=== PATIENT | male | born 1955 | race African-American/Black ===

== ENCOUNTER 2018-11-28 18:10 | Emergency (ER) | payer OTHER ==
[2018-11-28 18:30] VITALS: TEMP 98.3; BMI 43.8
--- NOTE | 2018-11-28 18:33 | PDOC ---
Rapid Medical Evaluation Chief Complaint: Pain Time Seen by Provider: 11/28/18 18:30 Medical Evaluation: Allergies Allergy/AdvReac Type Severity Reaction Status Date / Time No Known Drug Allergies Allergy Verified 09/01/15 11:46 Vital Signs Temp Pulse Resp BP Pulse Ox 98.3 F 74 16 161/65 95 11/28/18 18:27 11/28/18 18:27 11/28/18 18:27 11/28/18 18:27 11/28/18 18:27 11/28/18 18:30 Pt c/o: urinary freq right back pain, kidney tx 5 yrs ago done at [facility], no other complaints Pt on brief exam: mild rt cva tenderness, vss Pt ordered: labs, urine, iv Pt to proceed to the ED Discharge Disposition - Diagnosis Back pain - Referrals - Patient Instructions - Post Discharge Activity
[2018-11-28 19:00] LABS: BASO % 1.3 % (0-2.0); EOS % 1.5 % (0-4.5); HEMATOCRIT 37.6 % (35.4-49); HEMOGLOBIN 11.6 GM/dL (11.7-16.9); MEAN CELL VOLUME 71.2 fl (80-96); MEAN PLT VOLUME 9.3 fl (7.5-11.1); MONO % 7.1 % (3.8-10.2); NEUT % 72.1 % (42.8-82.8); PLATELET COUNT 194 K/MM3 (134-434); RBC 5.28 M/mm3 (4.00-5.60); WHITE BLOOD COUNT 7.9 K/mm3 (4.0-10.0)
[2018-11-28 19:02] LABS: EPI CELLS 0.3 /HPF (0-5/HPF); HYALINE CASTS 0 /lpf (0-8); PH,URINE 7.5 (5.0-8.0); URINE APPEARANCE CLEAR; URINE BACTERIA 0.3 /hpf (NEGATIVE); URINE BILIRUBIN NEGATIVE (NEGATIVE); URINE COLOR YELLOW; URINE GLUCOSE (UA) NEGATIVE (NEGATIVE); URINE KETONE NEGATIVE (NEGATIVE); URINE LEUK ESTERASE NEGATIVE (NEGATIVE); URINE NITRITE NEGATIVE (NEGATIVE); URINE PROTEIN 1+ (NEGATIVE); URINE RBC 0 /hpf (0-4); URINE UROBILINOGEN 0.2 mg/dL (0.2-1.0); URINE WBC 0 /hpf (0-5)
[2018-11-28 19:30] LABS: BILIRUBIN,TOTAL 0.7 mg/dL (0.2-1); BLOOD UREA NITROGEN 23.7 mg/dL (7-18); CALCIUM 8.5 mg/dL (8.5-10.1); CREATININE 1.7 mg/dL (0.55-1.3); POTASSIUM 4.4 mmol/L (3.5-5.1); TOT PROT 6.7 g/dl (6.4-8.2)
[2018-11-28 19:42] LABS: ANISOCYTOSIS 1+; PLATELET ESTIMATE NORMAL
--- NOTE | 2018-11-28 21:33 | PDOC ---
History of Present Illness - General Chief Complaint: Pain Stated Complaint: KIDNEY PAIN Time Seen by Provider: 11/28/18 18:30 Past History - Past Medical History Allergies/Adverse Reactions: Allergies Allergy/AdvReac Type Severity Reaction Status Date / Time No Known Drug Allergies Allergy Verified 09/01/15 11:46 Home Medications: Ambulatory Orders Aspirin [ASA -] 325 mg PO DAILY 12/14/12 Carvedilol [Coreg -] 3.125 mg PO BID 12/14/12 Atorvastatin Ca [Lipitor] 40 mg PO DAILY 09/01/15 Losartan Potassium 100 mg PO DAILY 09/01/15 Mycophenolate Mofetil [Cellcept -] 500 mg PO BID 09/01/15 Nifedipine ER [Procardia Xl -] 30 mg PO BID 09/01/15 Tacrolimus 5 mg PO BID 09/01/15 Tamsulosin HCl 0.4 mg PO HS 09/01/15 Anemia: No Asthma: No Cancer: No Cardiac Disorders: No CVA: Yes COPD: No CHF: No Dementia: No Diabetes: No Dialysis: Yes GI Disorders: No Disorders: No HTN: Yes Hypercholesterolemia: No Liver Disease: No Seizures: No Thyroid Disease: No - Surgical History Abdominal Surgery: Yes (HERNIA SX) Appendectomy: No Cardiac Surgery: No Cholecystectomy: No Lung Surgery: No Neurologic Surgery: No Orthopedic Surgery: Yes (BILATERAL HIP REPLACEMENTS) - Immunization History Immunization Up to Date: Yes - Psycho Social/Smoking Cessation Hx Smoking Status: No Smoking History: Never smoked Have you smoked in the past 12 months: No Number of Cigarettes Smoked Daily: 0 If you are a former smoker, when did you quit?: 15 YEARS Hx Alcohol Use: No Drug/Substance Use Hx: No Substance Use Type: None Hx Substance Use Treatment: No *Physical Exam - Vital Signs Last Vital Signs Temp Pulse Resp BP Pulse Ox 98.3 F 74 16 161/65 95 11/28/18 18:27 11/28/18 18:27 11/28/18 18:27 11/28/18 18:27 11/28/18 18:27 ED Treatment Course - LABORATORY CBC & Chemistry Diagram: 11/28/18 18:46 11/28/18 18:46 - ADDITIONAL ORDERS Additional order review: Laboratory Results 11/28/18 11/28/18 11/28/18 18:46 18:46 18:46 WBC 7.9 RBC 5.28 Hgb 11.6 L Hct 37.6 MCV 71.2 L MCH 22.0 L MCHC 31.0 L RDW 16.0 H Plt Count 194 D MPV 9.3 Absolute Neuts (auto) 5.7 Neutrophils % 72.1 Lymphocytes % 18.0 D Monocytes % 7.1 Eosinophils % 1.5 D Basophils % 1.3 Nucleated RBC % 0 Hypochromia 1+ Platelet Estimate Normal Polychromasia 1+ Anisocytosis 1+ Schistocytes 1+ Sodium 141 Potassium 4.4 Chloride 109 H Carbon Dioxide 25 Anion Gap 7 L BUN 23.7 H Creatinine 1.7 H Est GFR (CKD-EPI)AfAm 49.00 Est GFR (CKD-EPI)NonAf 42.28 Random Glucose 99 Calcium 8.5 Total Bilirubin 0.7 AST 18 ALT 19 Alkaline Phosphatase 69 Total Protein 6.7 Albumin 4.0 Lipase 122 Urine Color Yellow Urine Appearance Clear Urine pH 7.5 D Ur Specific [place] 1.010 Urine Protein 1+ H Urine Glucose (UA) Negative Urine Ketones Negative Urine Blood Negative Urine Nitrite Negative Urine Bilirubin Negative Urine Urobilinogen 0.2 Ur Leukocyte Esterase Negative Urine WBC (Auto) 0 Urine RBC (Auto) 0 Urine Casts (Auto) 0 U Epithel Cells (Auto) 0.3 Urine Bacteria (Auto) 0.3 11/28/18 18:46 RBC 5.28 MCV 71.2 L MCHC 31.0 L RDW 16.0 H MPV 9.3 Neutrophils % 72.1 Lymphocytes % 18.0 D Monocytes % 7.1 Eosinophils % 1.5 D Basophils % 1.3 Medical Decision Making - Medical Decision Making 11/28/18 21:33 HPI: 63yo M hx R renal transplant in 2013 (and L renal atrophy on [address] CT), HTN, CAD , HLD, prior CVA (2010), known heart murmur (followed by cashier host/hostess) presents from home c/o L-sided lower back pain xapprox 1wk, nonradiating, intermittent, sharp, only occurs when pt stands up after sitting especially if sitting for long periods, resolves on own with walking or standing, improved with 5mg percocet last night. Pt wanted to check if kidney was alright. Called his transplant PA and was told to come here to get it checked out. Endorses heavy lifting of log on Saturday which pt believes was prior to the pain starting. 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 Denies trauma, sick contacts, recent travel, recent illness, fever, chills, fatigue, headache, dizziness, numbness/tingling, weakness, vision changes, shortness of breath, cough, chest pain, palpitations, leg swelling, abdominal pain, blood in stool, diarrhea, constipation, nausea, vomiting, dysuria, hematuria, urinary retention, urinary frequency or urgency, polyuria, confusion. ROS: Constitutional: Negative for chills, fever, fatigue, diaphoresis. HENT: Negative for sore throat, rhinorrhea, congestion. Eyes: Negative for visual disturbance. Respiratory: Negative for shortness of breath, cough, and wheezing. Cardiovascular: Negative for chest pain, palpitations, and leg swelling. Gastrointestinal: Negative for abdominal pain, blood in stool, constipation, diarrhea, nausea, and vomiting. Genitourinary: Positive for L flank/lower back pain. Negative for dysuria and hematuria. Musculoskeletal: Positive for L-sided lower back pain. Negative for myalgias and neck pain. Skin: Negative for rash. Neurological: Negative for light-headedness, dizziness, vertigo, syncope, weakness, numbness and headaches. Psychiatric/Behavioral: Negative for behavioral problems and confusion. PE: Gen: Alert, NAD, comfortable-appearing, obese HEENT: PERRL, EOMI, MMM, NCAT. No conjunctival pallor. Sclera are non-icteric. CV: Regular rate and rhythm. +systolic murmur (chronic per pt). No rubs, or gallops. PULM: No resp distress. CTAB, no wheezes, rales, or rhonchi. ABD: soft, NT/ND, no rebound tenderness or guarding, no CVA tenderness. BACK: No TTP of c/t/l-spine. No step-offs or deformities. +L-sided back pain just superior to L hip reproduced immediately every time pt stands up from sitting position, then resolves within 10 seconds. MSK: No bony deformities. 2+ pulses in all extremities. NEURO: AAOx3. PERRL. No gross CN deficits. Strength and sensation grossly intact throughout. EXTREMITIES: + L forearm fistula with bruit and thrill. No cyanosis. No clubbing. No edema. No calf tenderness. PSYCH: Normal mood and thought pattern. SKIN: Warm and dry. Normal capillary refill. No rashes. No jaundice. MDM: 63yo M hx R renal transplant in 2013 (and L renal atrophy on 2016 CT), HTN, CAD , HLD, prior CVA (2010), known heart murmur (followed by cashier host/hostess) presents from home presents with L-sided lower back pain xapprox 1wk, nonradiating, intermittent, sharp, only occurs when pt stands up after sitting especially if sitting for long periods, resolves on own with walking or standing, improved with 5mg percocet last night. Hemodynamically stable, afebrile, benign abdomen exam, no CVA tenderness, L-sided lower back pain reproducible with standing from seated position and resolves on own with standing. Presentation consistent with MSK sprain or strain 2/2 heavy lifting or prolonged sitting. No c/t/l- spine or hip TTP or trauma concerning for fx. No urinary sx, hematuria, fever, N /V, or CVA tenderness, and reproducibility of pain with standing makes urinary or renal pathology (UTI/pyelo, kidney stone, renal abscess) of low concern - check labs, no imaging indicated at this time. Kidney transplant on R side, not L side. No abdominal pain, N/V, or D/C concerning for GI pathology. -CBC,CMP,Lipase,UA/UC -1L NS - pt refuses, states just wants to drink water -Tylenol -Dispo: pending w/u, most likely d/c home Labs reviewed. Of note, BUN 23.7, Cr 1.7 (09/01/15 - BUN 18, Cr 2.0) - no concerning changes from baseline. UA: 1+ protein, no blood or signs of infection. 11/28/18 22:31 Pt states pain is still gone, only comes temporarily when stands up after prolonged sitting. Ambulating without difficulty. Will dc home with PCP f/u. Return precautions given. Pt understands all dc instructions and all questions were answered. Discharge - Discharge Information Problems reviewed: Yes Clinical Impression/Diagnosis: Back pain Condition: Improved Disposition: HOME - Admission No - Follow up/Referral - Patient Discharge Instructions Patient Printed Discharge Instructions: DI for Low Back Pain Additional Instructions: You have been seen in the Emergency Department for your left-sided lower back pain. Your pain is most likely a strain or sprain of a ligament or muscle. If you experience pain, you can take Tylenol as directed on the medication bottle, but do not exceed 4g of Tylenol a day. Make sure you rest your back. Stop, change, or take a break from any activity that may be causing your pain or soreness. You can also use ice and/or heat to help the healing process. Cold will reduce pain and swelling. Apply an ice or cold pack right away to prevent or minimize swelling. Apply the ice or cold pack for 10 to 20 minutes, 3 or more times a day. After 48 to 72 hours, if swelling is gone, apply heat to the area that hurts. Do not apply ice or heat directly to the skin. Place a towel over the cold or heat pack before applying it to the skin. Your blood work and urine show no signs concerning for an infection or problem in your kidneys at this time. However, it is important that you follow-up with your kidney transplant doctor and your primary care doctor. Call their offices to make appointments for follow-up within 1 week. It is also very important to stay hydrated with water (not earlene seda!). Return to the ED immediately if you experience worsening pain not controlled by over the counter medications, numbness or tingling, weakness, fever, vomiting, blood in the urine, or any other new or worsening symptom. - Post Discharge Activity
[2018-11-28 22:04] VITALS: BP 138/81
[2018-11-28] MEDS ORDERED: ACETAMINOPHEN 500 MG TABLET (FP) PO ONE (22:07)
[2018-11-28] MEDS ORDERED: SODIUM CHLORIDE 0.9% 500 ML INFUS.BAG IV ONE (22:08)
[2018-11-28] MEDS ORDERED: ACETAMINOPHEN 325 MG TABLET (FP) ONE (22:43)
--- NOTE | 2018-11-28 22:53 | PDOC ---
Documentation entered by Bryn Matamoros SCRIBE, acting as scribe for Ji Stone MD. Ji Stone MD: This documentation has been prepared by the Shiloh gupta Xhesika, SCRIBE, under my direction and personally reviewed by me in its entirety. I confirm that the documentation accurately reflects all work, treatment, procedures, and medical decision making performed by me. Attending Attestation - Resident Resident Name: DionicioheronReanna - ED Attending Attestation I have performed the following: I have examined & evaluated the patient, The case was reviewed & discussed with the resident, I agree w/resident's findings & plan, Exceptions are as noted - HPI HPI: 11/28/18 22:31 The patient is a 63 year old male with a significant PMH of R renal transplant in 2013, HTN, CAD, HLD, prior CVA (2010) who presents to the emergency department for L lower back pain x 1 week. Patient describes the pain as sharp, worsened when standing up/ walking. He states when he stands from a seated position, he has the pain for about 5-10 seconds, then it self resolves. The pain is non radiating. Pt called his transplant PA and was advised to come to the ED. Patient notes he lifted a heavy log on Saturday. Patient took a percocet last night for the pain, no other medications tried. Denies numbness or weakness in LE. The patient denies chest pain, shortness of breath, headache and dizziness. Denies fever, chills, cough, nausea, vomiting, diarrhea and constipation. Denies dysuria, frequency, urgency and hematuria. Allergies: NKDA - Physicial Exam PE: 11/28/18 22:32 GENERAL: Awake, alert, and fully oriented, in no acute distress. Ambulating in ED, talking to staff members. EYES: PERRLA, EOMI, sclera anicteric, conjunctiva clear ENT: Oropharynx clear without exudates. Moist mucosa NECK: Normal ROM, supple, no lymphadenopathy, JVD, or masses LUNGS: Breath sounds equal, clear to auscultation bilaterally. No wheezes, and no crackles HEART: Regular rate and rhythm, normal S1 and S2, no murmurs, rubs or gallops ABDOMEN: Soft, nontender, normoactive bowel sounds. No guarding, no rebound. No masses EXTREMITIES: Normal range of motion, no edema. No cords, erythema, or tenderness BACK: No midline spinal tenderness in cervical/thoracic/lumbar region. +L lumbar paraspinal ttp NEUROLOGICAL: Normal speech, cranial nerves intact, 5/5 equal strength and sensation b/l, normal reflexes SKIN: Warm, Dry, normal turgor, no rashes or lesions noted. - Medical Decision Making 11/28/18 22:49 63yo M with MMP including R sided renal transplant presents to the ED with L lumbar pain as well as ttp on exam. He is neuro intact. His pain lasts for seconds at a time. It has resolved with tylenol. His labs are at baseline. His urine is negative for blood or infection. Likely musculoskeletal strain, as it is positional and pt reports recent heavy lifting. No emergent need for imaging at this time. Will DC pt with close PMD f/u I discussed the physical exam findings, ancillary test results and final diagnoses with the patient. I answered all of the patient's questions. The patient was satisfied with the care received and felt comfortable with the discharge plan and treatment plan. The patient will call their primary care physician within 24 hours to arrange follow-up and will return to the Emergency Department with any new, persistent or worsening symptoms.
[2018-11-28 23:03] VITALS: PULSE 86
== END 2018-11-28 22:58 | disposition home or self-care (01) ==
LOC: JER 18:10
DX: M54.89 Other dorsalgia (principal); X50.9XXA Other and unspecified overexertion or strenuous movements or postures, initial encounter; Y93.89 Activity, other specified; Y92.89 Other specified places as the place of occurrence of the external cause; Y99.8 Other external cause status; I25.10 Atherosclerotic heart disease of native coronary artery without angina pectoris; I10 Essential (primary) hypertension; R01.1 Cardiac murmur, unspecified; E78.5 Hyperlipidemia, unspecified; Z86.73 Personal history of transient ischemic attack (TIA), and cerebral infarction without residual deficits; Z94.0 Kidney transplant status; Z96.643 Presence of artificial hip joint, bilateral
CPT/HCPCS: 36415; 80053; 81003; 83690; 85025; 87086; 99283-25

== ENCOUNTER 2018-12-18 08:48 | Emergency (ER) | payer OTHER ==
[2018-12-18 09:03] VITALS: TEMP 98.1; BMI 42.3
--- NOTE | 2018-12-18 09:09 | PDOC ---
History of Present Illness - General Chief Complaint: Pain, Acute Stated Complaint: FLANK PAIN History Source: Patient Exam Limitations: No Limitations - History of Present Illness Initial Comments: 63yo M hx R renal transplant in 2013 (and L renal atrophy on 2016 CT), HTN, CAD , HLD, prior CVA (2010), known heart murmur (followed by socially responsible investment adviser) presents to the emergency department with left lower back pain that has been ongoing for 2 weeks. Per the patient, he states he presented to our emergency department 2 weeks ago for a similar complaint. He has used tylenol without relief achieved. Describes the pain as a tightness, without radiation, and is rated a 5/10. 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 He denies lifting heavy objects recently. Denies leg weakness and decreased sensation in his left leg. Denies the following: fever, chills, SOB, chest pain, nausea, vomiting, hematuria, diarrhea, and leg pain. Endorses urinary frequency and SOB. Allergies: NKDA Past History - Past Medical History Allergies/Adverse Reactions: Allergies Allergy/AdvReac Type Severity Reaction Status Date / Time No Known Drug Allergies Allergy Verified 12/18/18 09:24 Home Medications: Ambulatory Orders Carvedilol [Coreg -] 6.25 mg PO BID 12/14/12 Atorvastatin Ca [Lipitor] 40 mg PO DAILY 09/01/15 Losartan Potassium 100 mg PO DAILY 09/01/15 Mycophenolate Mofetil [Cellcept -] 500 mg PO BID 09/01/15 Nifedipine ER [Procardia Xl -] 60 mg PO BID 09/01/15 Tacrolimus 5 mg PO BID 09/01/15 Tamsulosin HCl 0.4 mg PO HS 09/01/15 Cyclobenzaprine HCl 5 mg PO DAILY #14 tablet 12/18/18 Dapsone 100 mg PO DAILY 12/18/18 Prednisone 5 mg PO DAILY 12/18/18 Anemia: No Asthma: No Cancer: No Cardiac Disorders: Yes CVA: Yes COPD: No CHF: No Dementia: No Diabetes: No Dialysis: Yes GI Disorders: No Disorders: No HTN: Yes Hypercholesterolemia: No Liver Disease: No Seizures: No Thyroid Disease: No - Surgical History Abdominal Surgery: Yes (HERNIA SX) Appendectomy: No Cardiac Surgery: No Cholecystectomy: No Lung Surgery: No Neurologic Surgery: No Orthopedic Surgery: Yes (BILATERAL HIP REPLACEMENTS) - Immunization History Immunization Up to Date: Yes - Psycho Social/Smoking Cessation Hx Smoking Status: No Smoking History: Never smoked Have you smoked in the past 12 months: No Number of Cigarettes Smoked Daily: 0 If you are a former smoker, when did you quit?: 15 YEARS Information on smoking cessation initiated: No Hx Alcohol Use: No Drug/Substance Use Hx: No Substance Use Type: None Hx Substance Use Treatment: No Review of Systems - Review of Systems Able to Perform ROS?: Yes Is the patient limited [place]an proficient: No Constitutional: No: Chills, Diaphoresis, Fever, Weakness HEENTM: No: Eye Pain, Ear Pain, Nose Pain, Throat Pain, Mouth Pain Respiratory: Yes: Shortness of Breath. No: Cough, Hemoptysis Cardiac (ROS): No: Chest Pain, Lightheadedness, Palpitations, Syncope ABD/GI: No: Constipated, Diarrhea, Nausea, Rectal Bleeding, Vomiting, Tarry Stools : Yes: Dysuria. No: Burning, Frequency, Hematuria Musculoskeletal: Yes: Back Pain. No: Joint Pain, Neck Pain Integumentary: No: Bruising, Erythema, Rash Neurological: No: Headache, Numbness, Tingling, Tremors Psychiatric: No: Change in Appetite Endocrine: No: Unexplained Weight Gain Hematologic/Lymphatic: No: Anemia *Physical Exam - Vital Signs Last Vital Signs Temp Pulse Resp BP Pulse Ox 98.1 F 62 16 150/64 96 12/18/18 09:01 12/18/18 09:01 12/18/18 09:01 12/18/18 09:01 12/18/18 09:01 - Physical Exam General Appearance: Yes: Nourished, Appropriately Dressed. No: Apparent Distress, Intoxicated HEENT: positive: EOMI, CELESTE, Normal Voice, Symmetrical, Pharynx Normal, Hearing Grossly Normal. negative: Pale Conjunctivae, Scleral Icterus (R), Scleral Icterus (L), Muffled/Hoarse voice, Pharyngeal Erythema, Tonsillar Exudate, Tonsillar Erythema Neck: positive: Trachea midline, Supple. negative: Tender, Lymphadenopathy (R) , Lymphadenopathy (L), Tender lateral, Tender midline Respiratory/Chest: positive: Lungs Clear, Normal Breath Sounds. negative: Chest Tender, Respiratory Distress, Accessory Muscle Use, Rhonchi, Stridor, Wheezing Cardiovascular: positive: Regular Rhythm, Regular Rate, S1, S2. negative: Systolic Murmur Gastrointestinal/Abdominal: positive: Normal Bowel Sounds, Flat, Soft, Other ( previous scar noted on abdomen from surgery). negative: Tender Lymphatic: negative: Adenopathy Musculoskeletal: positive: Normal Inspection, Other (tenderness to palpation in the lumbar region L3-L5 on the left side. no rash present). negative: CVA Tenderness, Vertebral Tenderness Extremity: positive: Normal Capillary Refill, Normal Inspection, Normal Range of Motion. negative: Tender, Swelling, Calf Tenderness Integumentary: positive: Normal Color, Dry, Warm. negative: Swelling, Ecchymosis Neurologic: positive: braker passenger train II-XII NML intact, Fully Oriented, Alert, Normal Mood/ Affect, Normal Response, Motor Strength 5/5. negative: Facial Droop, Numbness, Sensory Deficit ED Treatment Course - LABORATORY CBC & Chemistry Diagram: 12/18/18 10:35 12/18/18 10:35 Medical Decision Making - Medical Decision Making 63yo M hx R renal transplant in 2013 (and L renal atrophy on 2016 CT), HTN, CAD , HLD, prior CVA (2010), known heart murmur (followed by socially responsible investment adviser) presents to the emergency department with left lower back pain that has been ongoing for 2 weeks. Initial vitals: Initial Vital Signs Temp Pulse Resp BP Pulse Ox 98.1 F 62 16 150/64 96 12/18/18 09:01 12/18/18 09:01 12/18/18 09:01 12/18/18 09:01 12/18/18 09:01 Work up: Discharge - Discharge Information Problems reviewed: Yes Clinical Impression/Diagnosis: Back pain, Immunocompromised patient Condition: Stable - Additional Discharge Information Prescriptions: Cyclobenzaprine HCl 5 mg PO DAILY #14 tablet - Follow up/Referral Referrals: Paras Sharif MD [Staff Physician] - [facility] [Provider Group] - Patient Discharge Instructions Patient Printed Discharge Instructions: DI for Low Back Pain Additional Instructions: You were seen in the emergency department for the evaluation of your back pain. Your xray shows some congestive changes, which means that there is some extra fluid in the lungs. You are clinically well but I want you to be seen by the socially responsible investment adviser that I referred you to. Please follow up with them within 1 week. Please follow up with the primary care doctor I referred to you within 1 week after discharge. Please return to the emergency department if you have worsening symptoms or new concerning symptoms. Thank you. - Post Discharge Activity
[2018-12-18] MEDS ORDERED: LIDOCAINE 5% TOPICAL PATCH TP ONE (10:02)
[2018-12-18] MEDS ORDERED: LIDOCAINE 5% TOPICAL PATCH ONE (10:30)
--- NOTE | 2018-12-18 10:41 | PDOC ---
Attending Attestation - Resident Resident Name: Addi Avila - ED Attending Attestation I have performed the following: I have examined & evaluated the patient, The case was reviewed & discussed with the resident, I agree w/resident's findings & plan, Exceptions are as noted - HPI HPI: 12/18/18 10:35 63 M with h/o ESRD s/p renal transplant 2013, HTN, CAD, HLD, CVA, presenting to ED with L lower back pain x 3 weeks. Pt denies any injuries or falls. States that the pain is constant, non-radiating. Worse with certain positions. Pt states that he was seen here 2 weeks ago and had bloodwork done. He was told the pain is muscular, but it has not resolved yet. Pt denies any midline back pain. Denies radiation of pain to either leg. Denies weakness/numbness in any extremity. No incontinence. Pt endorses an episode of dysuria a week ago that has since resolved. Denies F/C. - Physicial Exam PE: 12/18/18 10:41 "GENERAL: Awake, alert, and fully oriented, in no acute distress. HEAD: No signs of trauma EYES: PERRLA, EOMI, sclera anicteric, conjunctiva clear ENT: Auricles normal inspection, hearing grossly normal, nares patent, oropharynx clear without exudates. Moist mucosa NECK: Nontender, no stepoffs, Normal ROM, supple, no lymphadenopathy, JVD, or masses LUNGS: Breath sounds equal, clear to auscultation bilaterally. No wheezes, and no crackles HEART: Regular rate and rhythm, normal S1 and S2, no murmurs, rubs or gallops ABDOMEN: Soft, nontender, normoactive bowel sounds. No guarding, no rebound. No masses EXTREMITIES: Normal range of motion, no edema. No clubbing or cyanosis. No cords, erythema, or tenderness NEUROLOGICAL: Cranial nerves II through XII intact. 5/5 strength and sensation in all extremities, Normal speech, normal gait, normal cerebellar function SKIN: Warm, Dry, normal turgor, no rashes or lesions noted. BACK: No CVAT, no midline TTP, no stepoffs, + L lower TTP - Medical Decision Making 12/18/18 10:44 63 M with L lower back pain. Suspect msk in etiology. No CVAT. No midline pain. No neuro deficits to suggest cord pathology. No F/C to suggest infectious process. - Labs, UA, UCx - Pain control - Ortho f/u 12/18/18 11:41 Labs, UA unremarkable Pt is well appearing, with normal vitals. Clinically stable for DC at this time. I discussed the physical exam findings, ancillary test results and final diagnoses with the patient. I answered all of the patient's questions. The patient was satisfied with the care received and felt comfortable with the discharge plan and treatment plan. The patient agrees to follow up with the primary care physician within 24-72 hours.
[2018-12-18 10:52] LABS: BASO % 0.7 % (0-2.0); EOS % 2.9 % (0-4.5); HEMATOCRIT 35.3 % (35.4-49); HEMOGLOBIN 10.6 GM/dL (11.7-16.9); LYMPH % 25.6 % (8-40); MCH 21.7 pg (25.7-33.7); MEAN CELL VOLUME 72.3 fl (80-96); MEAN PLT VOLUME 9.5 fl (7.5-11.1); MONO % 12.2 % (3.8-10.2); NEUT % 58.6 % (42.8-82.8); PLATELET COUNT 184 K/MM3 (134-434); RBC 4.88 M/mm3 (4.00-5.60); RDW 15.9 % (11.9-15.9); WHITE BLOOD COUNT 6.1 K/mm3 (4.0-10.0)
[2018-12-18 10:53] LABS: HYALINE CASTS 0 /lpf (0-8); PH,URINE 5.5 (5.0-8.0); URINE APPEARANCE CLEAR; URINE BACTERIA 1.2 /hpf (NEGATIVE); URINE BILIRUBIN NEGATIVE (NEGATIVE); URINE COLOR YELLOW; URINE GLUCOSE (UA) NEGATIVE (NEGATIVE); URINE KETONE NEGATIVE (NEGATIVE); URINE LEUK ESTERASE NEGATIVE (NEGATIVE); URINE NITRITE NEGATIVE (NEGATIVE); URINE PROTEIN 1+ (NEGATIVE); URINE RBC 1 /hpf (0-4); URINE UROBILINOGEN 0.2 mg/dL (0.2-1.0); URINE WBC 1 /hpf (0-5)
[2018-12-18] MEDS ORDERED: CYCLOBENZAPRINE HCL 10 MG TABLET (FP) PO ONE (11:04)
[2018-12-18] MEDS ORDERED: CYCLOBENZAPRINE HCL 10 MG TABLET (FP) ONE (11:12)
[2018-12-18 11:24] LABS: ALBUMIN 3.4 g/dl (3.4-5.0); BILIRUBIN,TOTAL 0.6 mg/dL (0.2-1); BLOOD UREA NITROGEN 21.5 mg/dL (7-18); CALCIUM 8.2 mg/dL (8.5-10.1); CREATININE 1.7 mg/dL (0.55-1.3); POTASSIUM 4.3 mmol/L (3.5-5.1); TOT PROT 5.7 g/dl (6.4-8.2)
--- NOTE | 2018-12-18 12:04 | EKG ---
Test Reason : Blood Pressure : / mmHG Vent. Rate : 069 BPM Atrial Rate : 069 BPM P-R Int : 160 ms QRS Dur : 104 ms QT Int : 382 ms P-R-T Axes : 051 021 067 degrees QTc Int : 409 ms SINUS RHYTHM WITH PREMATURE SUPRAVENTRICULAR COMPLEXES ABNORMAL ECG WHEN COMPARED WITH ECG OF 01-SEP-2015 14:26, PREMATURE SUPRAVENTRICULAR COMPLEXES ARE NOW PRESENT Confirmed by BOB BLAKE, MARGARET ([id number]) on 12/18/2018 12:03:55 PM Referred By: Confirmed By:MARGARET ROJAS MD
[2018-12-18] MEDS ORDERED: CYCLOBENZAPRINE HCL 5 MG TABLET PO ONE (12:05)
[2018-12-18 12:52] VITALS: BP 143/73; PULSE 73
[2018-12-18 13:06] LABS: ANISOCYTOSIS 1+; MACROCYTOSIS 0; OVALOCYTE 2+; PLATELET ESTIMATE NORMAL; TARGET CELLS 1+
[2018-12-18] MEDS ORDERED: LIDOCAINE PATCH REMOVAL MC SCH (22:00)
== END 2018-12-18 13:19 | disposition home or self-care (01) ==
LOC: JER 08:48
DX: M54.5 Low back pain (principal); D89.9 Disorder involving the immune mechanism, unspecified; X50.1XXA Overexertion from prolonged static or awkward postures, initial encounter; Y92.89 Other specified places as the place of occurrence of the external cause; Y99.0 Civilian activity done for income or pay; I25.10 Atherosclerotic heart disease of native coronary artery without angina pectoris; I10 Essential (primary) hypertension; E78.5 Hyperlipidemia, unspecified; R01.1 Cardiac murmur, unspecified; Z94.0 Kidney transplant status; N26.1 Atrophy of kidney (terminal)
CPT/HCPCS: 36415; 71045-TC-FY; 80053; 81003; 82550; 82553; 84484; 85025; 87086; 93005; 93010; 99283-25

== ENCOUNTER 2019-03-23 12:44 | Emergency (ER) | payer OTHER ==
[2019-03-23 12:57] VITALS: BMI 39.5
--- NOTE | 2019-03-23 16:06 | PDOC ---
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 He states that the symptoms have been present since his prostate biopsy on 03/04/19. Today, he additionally feels generally unwell, and he is also reporting suprapubic and low back pain. 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 Mr Landrum is on chronic bactrim as well as mycophenolate, tacrolimus, and prednisone. He has been compliant with his medications. He denies any fevers, chills, nausea/vomiting, or other recent symptoms. Past History - Past Medical History Allergies/Adverse Reactions: Allergies Allergy/AdvReac Type Severity Reaction Status Date / Time No Known Drug Allergies Allergy Verified 03/23/19 12:53 Home Medications: Ambulatory Orders Carvedilol [Coreg -] 6.25 mg PO BID 12/14/12 Atorvastatin Ca [Lipitor] 40 mg PO DAILY 09/01/15 Losartan Potassium 100 mg PO DAILY 09/01/15 Mycophenolate Mofetil [Cellcept -] 500 mg PO BID 09/01/15 Nifedipine ER [Procardia Xl -] 60 mg PO BID 09/01/15 Tacrolimus 5 mg PO BID 09/01/15 Tamsulosin HCl 0.4 mg PO HS 09/01/15 Cyclobenzaprine HCl 5 mg PO DAILY #14 tablet 12/18/18 Dapsone 100 mg PO DAILY 12/18/18 Prednisone 5 mg PO DAILY 12/18/18 Anemia: No Asthma: No Cancer: No Cardiac Disorders: Yes CVA: Yes COPD: No CHF: No Dementia: No Diabetes: No Dialysis: Yes GI Disorders: No Disorders: No HTN: Yes Hypercholesterolemia: No Liver Disease: No Seizures: No Thyroid Disease: No - Surgical History Abdominal Surgery: Yes (HERNIA SX) Appendectomy: No Cardiac Surgery: No Cholecystectomy: No Lung Surgery: No Neurologic Surgery: No Orthopedic Surgery: Yes (BILATERAL HIP REPLACEMENTS) - Immunization History Immunization Up to Date: Yes - Psycho Social/Smoking Cessation Hx Smoking Status: No Smoking History: Never smoked Have you smoked in the past 12 months: No Number of Cigarettes Smoked Daily: 0 If you are a former smoker, when did you quit?: 15 YEARS Hx Alcohol Use: No Drug/Substance Use Hx: No Substance Use Type: None Hx Substance Use Treatment: No Review of Systems - Review of Systems Comments:: General: No fevers, no chills, no weight or appetite change, no malaise HEENT: No changes in vision, no changes in hearing, no congestion, no sore throat CV: No chest pain, no palpitations, no LE edema Pulm: No SOB, no cough, no wheezing GI: No nausea or vomiting, no change in bowel habits, no melena : See HPI Musc: No back pain, no joint swelling, no recent injury Skin: No rash, no lesions, no erythema Endo: No excessive thirst, no heat/cold intolerance Heme: No unusual bruising or bleeding, no swollen glands Neuro: No syncope, no numbness/tingling, no focal weakness Vasc: No claudication Psych: No recent change in mood, no SI or HI *Physical Exam - Vital Signs Last Vital Signs Temp Pulse Resp BP Pulse Ox 98.7 F 91 H 16 121/67 98 03/23/19 12:54 03/23/19 12:54 03/23/19 12:54 03/23/19 12:54 03/23/19 12:54 - Physical Exam General: Comfortable, no acute distress HEENT: PERRL, EOMI, MMM, voice normal, normal neck ROM, no LAD Cards: RRR, no murmur appreciated Pulm: Comfortable on room air, clear to auscultation bilaterally Abd: Soft, nontender, nondistended Ext: Atraumatic. 1+ BLE nonpitting edema. WWP Skin: Normal color, no rashes or lesions. Neuro: A&Ox3, CN grossly intact, normal speech, motor/sensory grossly intact and symmetric Psych: Mood appropriate to situation ED Treatment Course - LABORATORY CBC & Chemistry Diagram: 03/23/19 16:50 03/23/19 16:50 Medical Decision Making - Medical Decision Making 03/23/19 16:05 Pedro Landrum is 63yo man with Rt kidney transplant (2014, on mycophenolate, tacrolimus, prednisone), HTN, CAD, HLD, prior CVA (2010), known heart murmur ( followed by eddy current inspector), 2wks s/p prostate biopsy who presents with malaise, dysuria, hematuria, suprapubic/low back pain, and interrupted urine stream. Symptoms have been present since his recent biopsy. - Concerning for prostatitis v UTI secondary to prostate biopsy, but cannot rule out pyelonephritis or ascending infection that could compromise his transplated kidney - Warm to touch, will check rectal temp. Oral temp elevated at 98.7 - CBC, CBP, UA, UCx, blood cultures - May be septic as pt is immunosuppressed, may not have systemic response to severe infection 03/23/19 17:06 - Rectal temp 102.3 - Lactate, coags added - IVF, IV acetaminophen, zosyn 03/23/19 18:21 - CBC w/ marked leukocytosis to 30 - Sepsis, likely from urinary source - Contacted renal transplant team at [facility], agree that pt should be transferred. ED to ED transfer arranged by Dr Hernández, sign out given to Dr Pringle. - Pt consented for transfer - Chemistry hemozlied, resent 03/23/19 18:36 - UA w/ 300 WBC, 3+ leuk esterase, positive blood. 22 bacteria noted, but still suspect urinary source of infection due to symptoms and recent procedure 03/23/19 19:07 - EMS arrived for transport Discussed with Dr Betty Arteaga PGY2 Discharge - Discharge Information Problems reviewed: Yes Clinical Impression/Diagnosis: Immunocompromised patient Sepsis Qualifiers: Sepsis type: sepsis due to unspecified organism Sepsis acute organ dysfunction status: unspecified Qualified Code(s): A41.9 - Sepsis, unspecified organism Condition: Fair Disposition: TRANSFER ACUTE CARE/OTHER HOSP - Follow up/Referral - Patient Discharge Instructions - Post Discharge Activity - Transfer to Acute Care Facility Receiving Facility Name: [facility]
--- NOTE | 2019-03-23 16:39 | PDOC ---
Documentation entered by Breanna Bob SCRIBE, acting as scribe for Estefany Hernández DO. Estefany Hernández DO: This documentation has been prepared by the Paulino gupta Nirvannie, SCRIBE, under my direction and personally reviewed by me in its entirety. I confirm that the documentation accurately reflects all work, treatment, procedures, and medical decision making performed by me. Attending Attestation - Resident Resident Name: MahinmargretJanelle - ED Attending Attestation I have performed the following: I have examined & evaluated the patient, The case was reviewed & discussed with the resident, I agree w/resident's findings & plan, Exceptions are as noted - HPI HPI: 03/23/19 16:58 The patient is 63 a year old male, with a significant past medical history of R renal transplant (14 at [facility], chronically on Bactrim), HTN, CAD, HLD, CVA (11), who presents to the emergency department with 2 days of dysuria and hematuria. Patient endorses associated subjective fevers, diarrhea, and chills. He denies any recent fevers, chills, headache or dizziness. He denies any recent nausea or vomiting. He denies any recent chest pain or shortness of breath. Allergies: NKDA Urologist: Dr. Oliveira Transplant Surgeon: Dr. Zaman - Physicial Exam PE: 03/23/19 16:58 Constitutional: +Hot to touch. Awake, alert, oriented. No acute distress. Head: Normocephalic. Atraumatic Eyes: PERRL. EOMI. Conjunctivae are not pale. ENT: Mucous membranes are moist and intact. Posterior pharynx without exudates or erythema. Uvula midline. Neck: Supple. Full ROM. No lymphadenopathy. Cardiovascular: +Mildly tachycardic. Regular rhythm. S1, S2 regular. Distal pulses are 2+ and symmetric. Pulmonary/Chest: No evidence of respiratory distress. Clear to auscultation bilaterally No wheezing, rales or rhonchi. Abdominal: +Obese. Suprapubic tenderness. Soft and non-distended. No rebound, guarding or rigidity. No organomegaly. No palpable masses. Good bowel sounds. Back: +Low back pain. No CVA tenderness. Musculoskeletal: +LUE: Old fistula with thrill. +Trace pitting edema to the ankles. No cyanosis. No clubbing. Full range of motion in all extremities. No calf tenderness. Radial/pedal pulses are intact and 2+ bilaterally Skin: Skin is warm and dry. No petechiae. No purpura. Neurological: Alert and oriented to person, place, and time. Cranial nerves II -XII are grossly intact. Normal speech. Strength is grossly symmetric. No sensory deficits. Psychiatric: Good eye contact. Normal interaction, affect and behavior. - Critical Care Time Total Critical Care Time: 45 Critical Care Statement: The care of this patient involved high complexity decision making to prevent further life threatening deterioration of the patient 's condition and/or to evaluate & treat vital organ system(s) failure or risk of failure. 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 Elena who states they only admit after 1 year of transplant, but can consult, recommends medicine admission 03/23/19 18:[address] Amador from [facility] at [facility] who requests ER to ER transfer for admission to medicine 03/23/19 18:15 pt accepted to [facility] ER under Dr. Pringle 03/23/19 18:15 pt has signed the transfer consent Heart Score/ECG Review - ECG Intrepretation Comment:: 03/23/19 17:04 sinus at 91, pvc, nl axis, q waves anterior leads which are age indeterminate, t wave inversions laterally, abnl ekg
[2019-03-23] MEDS ORDERED: ACETAMINOPHEN 1000 MG/100 ML VIAL (NON FORMULARY) IVPB ONE (16:53)
[2019-03-23] MEDS ORDERED: PIPERACILLIN/TAZOB 4.5 GM 4.5 GM in DEXTROSE 5%-WATER 100 ML IVPB ONE (16:53)
[2019-03-23] MEDS ORDERED: SODIUM CHLORIDE 0.9% 500 ML INFUS.BAG IV ONE (16:53)
[2019-03-23] MEDS ORDERED: PIPERACILLIN/TAZOB 4.5 GM 4.5 GM/100 ML BAG IVPB ONE (17:17)
[2019-03-23] MEDS ORDERED: ACETAMINOPHEN INJECTION 100 ML IVPB ONE (17:17)
[2019-03-23 17:36] LABS: BASO % 0.1 % (0-2.0); LYMPH % 3.9 % (8-40); MCH 21.6 pg (25.7-33.7); MCHC 30.6 g/dl (32.0-35.9); MEAN CELL VOLUME 70.5 fl (80-96); MEAN PLT VOLUME 10.7 fl (7.5-11.1); MONO % 9.6 % (3.8-10.2); NEUT % 86.4 % (42.8-82.8); PLATELET COUNT 199 K/MM3 (134-434); RBC 5.54 M/mm3 (4.00-5.60); RDW 14.8 % (11.9-15.9); WHITE BLOOD COUNT 29.2 K/mm3 (4.0-10.0)
[2019-03-23 18:00] LABS: INR 1.63 (0.83-1.09); PROTHROMBIN TIME (PATIENT) 19.3 SEC (9.7-13.0)
[2019-03-23 18:03] LABS: ACTIVATED PTT 28.7 SECONDS (25.2-36.5)
[2019-03-23 18:10] LABS: EPI CELLS 2.1 /HPF (0-5/HPF); HYALINE CASTS 4 /lpf (0-8); URINE APPEARANCE TURBID; URINE BACTERIA 22.4 /hpf (NEGATIVE); URINE BILIRUBIN NEGATIVE (NEGATIVE); URINE COLOR YELLOW; URINE GLUCOSE (UA) NEGATIVE (NEGATIVE); URINE KETONE TRACE (NEGATIVE); URINE LEUK ESTERASE 3+ (NEGATIVE); URINE NITRITE NEGATIVE (NEGATIVE); URINE PROTEIN 2+ (NEGATIVE); URINE RBC 10 /hpf (0-4); URINE UROBILINOGEN 0.2 mg/dL (0.2-1.0); URINE WBC 338 /hpf (0-5)
[2019-03-23 18:24] LABS: ANISOCYTOSIS 1+; OVALOCYTE FEW; PLATELET ESTIMATE ADEQUATE; TARGET CELLS 1+
[2019-03-23 19:08] LABS: ALBUMIN 2.9 g/dl (3.4-5.0); BILIRUBIN,TOTAL 0.9 mg/dL (0.2-1); CALCIUM 8.2 mg/dL (8.5-10.1); CREATININE 2.5 mg/dL (0.55-1.3); TOT PROT 5.7 g/dl (6.4-8.2)
--- NOTE | 2019-03-23 19:13 | PDOC ---
*Physical Exam - Vital Signs Last Vital Signs Temp Pulse Resp BP Pulse Ox 102.3 F H 91 H 16 121/67 98 03/23/19 16:52 03/23/19 12:54 03/23/19 12:54 03/23/19 12:54 03/23/19 12:54 ED Treatment Course - LABORATORY CBC & Chemistry Diagram: 03/23/19 16:50 03/23/19 18:00 - ADDITIONAL ORDERS Additional order review: Laboratory Results 03/23/19 03/23/19 03/23/19 18:00 17:20 16:50 PT with INR INR PTT (Actin FS) Sodium 138 Potassium 4.0 Chloride 107 Carbon Dioxide 20 L Anion Gap 11 BUN 33.0 H Creatinine 2.5 H Est GFR (CKD-EPI)AfAm 30.74 Est GFR (CKD-EPI)NonAf 26.52 Random Glucose 90 Lactic Acid 1.8 Calcium 8.2 L Total Bilirubin 0.9 AST 23 ALT 16 Alkaline Phosphatase 56 Total Protein 5.7 L Albumin 2.9 L Urine Color Yellow Urine Appearance Turbid Urine pH 5.0 Ur Specific [place] 1.021 Urine Protein 2+ H Urine Glucose (UA) Negative Urine Ketones Trace H Urine Blood 2+ H Urine Nitrite Negative Urine Bilirubin Negative Urine Urobilinogen 0.2 Ur Leukocyte Esterase 3+ H Urine WBC (Auto) 338 Urine RBC (Auto) 10 Urine Casts (Auto) 4 U Epithel Cells (Auto) 2.1 Urine Bacteria (Auto) 22.4 03/23/19 03/23/19 16:50 16:50 PT with INR 19.30 H INR 1.63 H PTT (Actin FS) 28.7 Sodium Cancelled Potassium Cancelled Chloride Cancelled Carbon Dioxide Cancelled Anion Gap Cancelled BUN Cancelled Creatinine Cancelled Est GFR (CKD-EPI)AfAm Cancelled Est GFR (CKD-EPI)NonAf Cancelled Random Glucose Cancelled Lactic Acid Calcium Cancelled Total Bilirubin Cancelled AST Cancelled ALT Cancelled Alkaline Phosphatase Cancelled Total Protein Cancelled Albumin Cancelled Urine Color Urine Appearance Urine pH Ur Specific [place] Urine Protein Urine Glucose (UA) Urine Ketones Urine Blood Urine Nitrite Urine Bilirubin Urine Urobilinogen Ur Leukocyte Esterase Urine WBC (Auto) Urine RBC (Auto) Urine Casts (Auto) U Epithel Cells (Auto) Urine Bacteria (Auto) 03/23/19 16:50 RBC 5.54 MCV 70.5 L MCHC 30.6 L RDW 14.8 MPV 10.7 D Neutrophils % 86.4 H D Lymphocytes % 3.9 L D Monocytes % 9.6 Eosinophils % 0.0 D Basophils % 0.1 - Medications Given in the ED: ED Medications Discontinued Medications Generic Name Dose Route Start Last Admin Trade Name Fuad PRN Reason Stop Dose Admin Acetaminophen 1,000 mg 03/23/19 16:53 03/23/19 17:40 Ofirmev Injection - IVPB 03/23/19 16:54 1,000 mg ONCE ONE Administration Piperacillin Sod/Tazobactam 100 mls @ 200 mls/hr 03/23/19 16:53 03/23/19 17: 41 Sod 4.5 gm/ Dextrose IVPB 03/23/19 17:22 200 mls/hr ONCE ONE Administration Protocol Sodium Chloride 1,000 ml 03/23/19 16:53 03/23/19 17:39 Normal Saline - IV 03/23/19 16:54 1,000 ml ONCE ONE Administration Discharge - Discharge Information Problems reviewed: Yes Clinical Impression/Diagnosis: Immunocompromised patient Sepsis Qualifiers: Sepsis type: sepsis due to unspecified organism Sepsis acute organ dysfunction status: unspecified Qualified Code(s): A41.9 - Sepsis, unspecified organism Condition: Fair Disposition: TRANSFER ACUTE CARE/OTHER HOSP - Follow up/Referral - Patient Discharge Instructions - Post Discharge Activity Work/Back to School Note: Back to Work
[2019-03-23 19:28] VITALS: BP 120/75; PULSE 85; TEMP 100
--- NOTE | 2019-03-24 09:27 | EKG ---
Test Reason : Blood Pressure : / mmHG Vent. Rate : 091 BPM Atrial Rate : 091 BPM P-R Int : 150 ms QRS Dur : 100 ms QT Int : 342 ms P-R-T Axes : 052 023 071 degrees QTc Int : 420 ms SINUS RHYTHM WITH FREQUENT PREMATURE VENTRICULAR COMPLEXES ANTERIOR INFARCT , AGE UNDETERMINED ABNORMAL ECG WHEN COMPARED WITH ECG OF 18-DEC-2018 10:09, PREMATURE VENTRICULAR COMPLEXES ARE NOW PRESENT PREMATURE SUPRAVENTRICULAR COMPLEXES ARE NO LONGER PRESENT Confirmed by Raj Erickson MD ([id number]) on 03/24/2019 9:26:48 AM Referred By: Confirmed By:Raj Erickson MD
== END 2019-03-23 19:00 | disposition short-term general hospital (02) ==
LOC: JER 12:44
PROC: 3E03329 Introduction of Other Anti-infective into Peripheral Vein, Percutaneous Approach (ICD-10-PCS; principal; 2019-03-23)
PROC: 3E033NZ Introduction of Analgesics, Hypnotics, Sedatives into Peripheral Vein, Percutaneous Approach (ICD-10-PCS; 2019-03-23)
DX: A41.9 Sepsis, unspecified organism (principal); D84.8 Other specified immunodeficiencies; E78.5 Hyperlipidemia, unspecified; I25.10 Atherosclerotic heart disease of native coronary artery without angina pectoris; I10 Essential (primary) hypertension; Z94.0 Kidney transplant status; R01.1 Cardiac murmur, unspecified; Z86.73 Personal history of transient ischemic attack (TIA), and cerebral infarction without residual deficits; Z96.643 Presence of artificial hip joint, bilateral; Z98.890 Other specified postprocedural states
CPT/HCPCS: 36415; 80053; 81003; 83605; 85025; 85610; 85730; 87040; 87086; 87186; 93005; 93010; 96365; 96375; 99284-25; J0131

== ENCOUNTER 2022-02-22 09:49 | Inpatient (IN) | payer OTHER ==
[2022-02-22] MEDS ORDERED: ACETAMINOPHEN 325 MG TABLET (FP) PO ONE (11:58)
[2022-02-22] MEDS ORDERED: ACETAMINOPHEN 325 MG TABLET (FP) ONE (12:01)
[2022-02-22 12:31] LABS: BASO % 0.7 % (0-2.0); EOS % 3.7 % (0-4.5); HEMATOCRIT 41.1 % (35.4-49); HEMOGLOBIN 12.7 GM/dL (11.7-16.9); LYMPH % 19.3 % (8-40); MCH 22.1 pg (25.7-33.7); MEAN CELL VOLUME 71.4 fl (80-96); MEAN PLT VOLUME 10.2 fl (7.5-11.1); MONO % 10.6 % (3.8-10.2); NEUT % 65.7 % (42.8-82.8); PLATELET COUNT 212 10^3/uL (134-434); RBC 5.75 M/mm3 (4.00-5.60); RDW 16.3 % (11.9-15.9); WHITE BLOOD COUNT 5.1 K/mm3 (4.0-10.0)
[2022-02-22 12:36] LABS: EPI CELLS 4 /uL (0-25.1); HYALINE CASTS 0 /uL (0-3.1); PH,URINE 6.5 (5.0-8.0); URINE APPEARANCE CLEAR; URINE BACTERIA 5 /uL (0-1359); URINE BILIRUBIN NEGATIVE (NEGATIVE); URINE COLOR YELLOW; URINE GLUCOSE (UA) NEGATIVE (NEGATIVE); URINE KETONE NEGATIVE (NEGATIVE); URINE LEUK ESTERASE NEGATIVE (NEGATIVE); URINE NITRITE NEGATIVE (NEGATIVE); URINE PROTEIN 3+ (NEGATIVE); URINE RBC 20 /uL (0-23.9); URINE UROBILINOGEN 0.2 mg/dL (0.2-1.0); URINE WBC 5 /uL (0-25.8)
[2022-02-22 12:37] LABS: INR 1.22 (0.83-1.09); PROTHROMBIN TIME (PATIENT) 14.1 SEC (9.7-13.0)
[2022-02-22 12:54] LABS: CALCIUM 8.6 mg/dL (8.5-10.1)
[2022-02-22 12:55] LABS: ALBUMIN 3.2 g/dl (3.4-5.0); BLOOD UREA NITROGEN 25.9 mg/dL (7-18)
[2022-02-22 12:58] LABS: CREATININE 1.8 mg/dL (0.55-1.3)
[2022-02-22 13:00] LABS: TOT PROT 6.2 g/dl (6.4-8.2)
[2022-02-22 13:03] LABS: N-TERMINAL BNP 943.8 pg/ml (5-125)
[2022-02-22 13:04] LABS: BILIRUBIN,TOTAL 0.5 mg/dL (0.2-1)
[2022-02-22] MEDS ORDERED: FUROSEMIDE 40 MG/4 ML INJECTABLE VIAL IVPUSH ONE (13:51)
[2022-02-22] MEDS ORDERED: FUROSEMIDE 40 MG/4 ML INJECTABLE VIAL ONE (14:07)
[2022-02-22] MEDS ORDERED: oxyCODONE HCL 5 MG TABLET PO ONE (20:38)
[2022-02-22] MEDS ORDERED: oxyCODONE HCL 5 MG TABLET ONE (20:42)
[2022-02-22] MEDS ORDERED: APIXABAN 5 MG TABLET ONE (23:16)
[2022-02-22] MEDS ORDERED: ATORVASTATIN CA 40 MG TABLET (FP) ONE (23:17)
[2022-02-22] MEDS ORDERED: CARVEDILOL 6.25 MG TABLET (FP) ONE (23:17)
[2022-02-22] MEDS: CARVEDILOL 6.25 MG TABLET (FP) PO SCH (23:27)
[2022-02-22] MEDS: APIXABAN 5 MG TABLET PO SCH (23:27)
[2022-02-22] MEDS: ATORVASTATIN CA 40 MG TABLET (FP) PO SCH (23:27)
[2022-02-23] MEDS: TACROLIMUS ANHYDROUS 1 MG CAPSULE PO SCH ×2 (00:09→09:47)
[2022-02-23] MEDS: MYCOPHENOLATE MOFETIL 500 MG TABLET PO SCH ×2 (00:09→09:47)
[2022-02-23] MEDS ORDERED: FUROSEMIDE 40 MG/4 ML INJECTABLE VIAL ONE (09:40)
[2022-02-23] MEDS ORDERED: CARVEDILOL 6.25 MG TABLET (FP) ONE ×2 (09:40→22:32)
[2022-02-23] MEDS ORDERED: APIXABAN 5 MG TABLET ONE ×2 (09:40→22:33)
[2022-02-23] MEDS: predniSONE 5 MG TABLET (UD) PO SCH (09:45)
[2022-02-23] MEDS: APIXABAN 5 MG TABLET PO SCH ×2 (09:45→22:40)
[2022-02-23] MEDS: CARVEDILOL 6.25 MG TABLET (FP) PO SCH ×2 (09:45→22:40)
[2022-02-23] MEDS: FUROSEMIDE 40 MG/4 ML INJECTABLE VIAL IVPUSH SCH (09:46)
[2022-02-23 09:48] LABS: BASO % 2.2 % (0-2.0); EOS % 3.3 % (0-4.5); HEMATOCRIT 41.4 % (35.4-49); HEMOGLOBIN 12.6 GM/dL (11.7-16.9); LYMPH % 15.1 % (8-40); MCH 21.9 pg (25.7-33.7); MCHC 30.3 g/dl (32.0-35.9); MEAN CELL VOLUME 72.2 fl (80-96); MEAN PLT VOLUME 10.4 fl (7.5-11.1); MONO % 11.3 % (3.8-10.2); NEUT % 68.1 % (42.8-82.8); PLATELET COUNT 179 10^3/uL (134-434); RBC 5.74 M/mm3 (4.00-5.60); RDW 15.6 % (11.9-15.9); WHITE BLOOD COUNT 5.2 K/mm3 (4.0-10.0)
[2022-02-23 09:49] LABS: ALBUMIN 3.2 g/dl (3.4-5.0); BLOOD UREA NITROGEN 24.2 mg/dL (7-18); CALCIUM 8.4 mg/dL (8.5-10.1)
[2022-02-23 09:50] LABS: PHOSPHOROUS 3.2 mg/dL (2.5-4.9)
[2022-02-23 09:51] LABS: TOT PROT 5.5 g/dl (6.4-8.2)
[2022-02-23] MEDS: TAMSULOSIN HCL 0.4 MG CAP PO SCH (09:51)
[2022-02-23 09:52] LABS: BILIRUBIN,TOTAL 0.8 mg/dL (0.2-1); CREATININE 1.8 mg/dL (0.55-1.3)
[2022-02-23 09:53] LABS: MAGNESIUM 1.6 mg/dL (1.8-2.4)
[2022-02-23 10:25] LABS: ANISOCYTOSIS 2+; MACROCYTOSIS 0
[2022-02-23] MEDS ORDERED: oxyCODONE HCL 5 MG TABLET PO PRN (11:53)
[2022-02-23] MEDS ORDERED: oxyCODONE HCL 5 MG TABLET ONE (12:45)
[2022-02-23 14:42] VITALS: BMI 47.0
[2022-02-23] MEDS ORDERED: ATORVASTATIN CA 40 MG TABLET (FP) ONE (22:33)
[2022-02-23] MEDS: ATORVASTATIN CA 40 MG TABLET (FP) PO SCH (22:40)
[2022-02-24] MEDS: MYCOPHENOLATE MOFETIL 500 MG TABLET PO SCH ×3 (01:30→21:55)
[2022-02-24] MEDS: TACROLIMUS ANHYDROUS 1 MG CAPSULE PO SCH ×3 (01:30→21:55)
[2022-02-24] MEDS: APIXABAN 5 MG TABLET PO SCH ×2 (09:11→21:54)
[2022-02-24] MEDS: predniSONE 5 MG TABLET (UD) PO SCH (09:11)
[2022-02-24] MEDS: FUROSEMIDE 40 MG/4 ML INJECTABLE VIAL IVPUSH SCH (09:11)
[2022-02-24] MEDS: TAMSULOSIN HCL 0.4 MG CAP PO SCH (09:11)
[2022-02-24] MEDS: CARVEDILOL 6.25 MG TABLET (FP) PO SCH ×2 (09:12→21:54)
[2022-02-24 10:37] LABS: BLOOD UREA NITROGEN 23.3 mg/dL (7-18)
[2022-02-24 10:38] LABS: CALCIUM 7.9 mg/dL (8.5-10.1); MAGNESIUM 1.8 mg/dL (1.8-2.4)
[2022-02-24 10:41] LABS: CREATININE 1.8 mg/dL (0.55-1.3); PHOSPHOROUS 2.6 mg/dL (2.5-4.9)
[2022-02-24] MEDS ORDERED: POTASSIUM CHLORIDE TABS 20 MEQ TABLET.ER (FP) PO ONE (13:32)
[2022-02-24] MEDS ORDERED: ALPRAZolam 1 MG TABLET PO ONE (14:00)
[2022-02-24] MEDS: ATORVASTATIN CA 40 MG TABLET (FP) PO SCH (21:54)
[2022-02-24 22:47] VITALS: RESP 20
[2022-02-25] MEDS: TAMSULOSIN HCL 0.4 MG CAP PO SCH (09:09)
[2022-02-25] MEDS: APIXABAN 5 MG TABLET PO SCH ×2 (09:09→22:01)
[2022-02-25] MEDS: CARVEDILOL 6.25 MG TABLET (FP) PO SCH ×2 (09:09→22:01)
[2022-02-25] MEDS: predniSONE 5 MG TABLET (UD) PO SCH (09:09)
[2022-02-25] MEDS: FUROSEMIDE 40 MG/4 ML INJECTABLE VIAL IVPUSH SCH (09:10)
[2022-02-25] MEDS: TACROLIMUS ANHYDROUS 1 MG CAPSULE PO SCH ×2 (09:10→22:02)
[2022-02-25] MEDS: MYCOPHENOLATE MOFETIL 500 MG TABLET PO SCH ×2 (09:10→22:02)
[2022-02-25 10:36] LABS: BASO % 0.7 % (0-2.0); EOS % 3.2 % (0-4.5); HEMATOCRIT 40.6 % (35.4-49); HEMOGLOBIN 12.3 GM/dL (11.7-16.9); LYMPH % 18.2 % (8-40); MCH 21.9 pg (25.7-33.7); MCHC 30.4 g/dl (32.0-35.9); MEAN CELL VOLUME 71.9 fl (80-96); MEAN PLT VOLUME 9.7 fl (7.5-11.1); MONO % 10.5 % (3.8-10.2); NEUT % 67.4 % (42.8-82.8); PLATELET COUNT 186 10^3/uL (134-434); RBC 5.65 M/mm3 (4.00-5.60); RDW 15.6 % (11.9-15.9); WHITE BLOOD COUNT 5.3 K/mm3 (4.0-10.0)
[2022-02-25 10:39] LABS: INR 1.64 (0.83-1.09); PROTHROMBIN TIME (PATIENT) 18.9 SEC (9.7-13.0)
[2022-02-25 10:49] LABS: BLOOD UREA NITROGEN 22.4 mg/dL (7-18); CALCIUM 8.6 mg/dL (8.5-10.1); MAGNESIUM 1.8 mg/dL (1.8-2.4)
[2022-02-25 10:52] LABS: CREATININE 1.7 mg/dL (0.55-1.3)
[2022-02-25 10:54] LABS: BILIRUBIN,TOTAL 0.7 mg/dL (0.2-1); TOT PROT 5.6 g/dl (6.4-8.2)
[2022-02-25] MEDS: ATORVASTATIN CA 40 MG TABLET (FP) PO SCH (22:01)
[2022-02-26] MEDS: CARVEDILOL 6.25 MG TABLET (FP) PO SCH (09:29)
[2022-02-26] MEDS: APIXABAN 5 MG TABLET PO SCH (09:29)
[2022-02-26] MEDS: predniSONE 5 MG TABLET (UD) PO SCH (09:29)
[2022-02-26] MEDS: TAMSULOSIN HCL 0.4 MG CAP PO SCH (09:29)
[2022-02-26] MEDS: TACROLIMUS ANHYDROUS 1 MG CAPSULE PO SCH (09:30)
[2022-02-26] MEDS: MYCOPHENOLATE MOFETIL 500 MG TABLET PO SCH (09:32)
[2022-02-26 11:08] LABS: BASO % 0.5 % (0-2.0); EOS % 2.6 % (0-4.5); HEMATOCRIT 40.6 % (35.4-49); HEMOGLOBIN 12.4 GM/dL (11.7-16.9); LYMPH % 18.8 % (8-40); MCHC 30.6 g/dl (32.0-35.9); MEAN CELL VOLUME 71.7 fl (80-96); MEAN PLT VOLUME 10.2 fl (7.5-11.1); MONO % 6.8 % (3.8-10.2); NEUT % 71.3 % (42.8-82.8); PLATELET COUNT 201 10^3/uL (134-434); RBC 5.66 M/mm3 (4.00-5.60); RDW 15.7 % (11.9-15.9)
[2022-02-26 11:14] LABS: INR 1.33 (0.83-1.09); PROTHROMBIN TIME (PATIENT) 15.3 SEC (9.7-13.0)
[2022-02-26] MEDS: FUROSEMIDE 40 MG/4 ML INJECTABLE VIAL IVPUSH SCH (11:39)
[2022-02-26 12:12] LABS: ANISOCYTOSIS 1+; MACROCYTOSIS 0; OVALOCYTE 1+; TEAR DROP CELLS 1+
[2022-02-26 16:00] VITALS: BP 144/92; PULSE 73; TEMP 98
== END 2022-02-26 17:55 | disposition home or self-care (01) | DRG 292 ==
LOC: JER 09:49 → JERBED 16:02 → J8W 02-24 01:53
PROVIDERS: ADMIT Internal Medicine; ATTEND Nurse Practitioner Family
DX: I13.0 Hypertensive heart and chronic kidney disease with heart failure and stage 1 through stage 4 chronic kidney disease, or unspecified chronic kidney disease (principal); Z68.42 Body mass index [BMI] 45.0-49.9, adult; Z94.0 Kidney transplant status; I25.10 Atherosclerotic heart disease of native coronary artery without angina pectoris; I10 Essential (primary) hypertension; E78.5 Hyperlipidemia, unspecified; I48.91 Unspecified atrial fibrillation; Z79.01 Long term (current) use of anticoagulants; Z86.73 Personal history of transient ischemic attack (TIA), and cerebral infarction without residual deficits; E66.9 Obesity, unspecified; N18.9 Chronic kidney disease, unspecified; I50.9 Heart failure, unspecified; E87.6 Hypokalemia; R19.00 Intra-abdominal and pelvic swelling, mass and lump, unspecified site
CPT/HCPCS: 0241U-QW; 36415; 71046-TC-FY; 74176-TC; 80048; 80053; 80197; 81003; 82105; 82378; 82550; 82553; 83735; 83880; 84100; 84484; 85025; 85610; 86301; 87086; 93005; 93010; 93306-TC; 99285-25; J7517